=== PATIENT | male | born 1985 | race Caucasian/White ===

== ENCOUNTER 2021-05-31 17:23 | Emergency (ER) | payer OTHER, MEDICAID ==
[~2021-05-31] VITALS: Ht 167.6 cm; Wt 72.6 kg
[2021-05-31 17:51] VITALS: BP_SYST 116
[2021-05-31 18:18] LABS: BILIRUBIN,URINE NEGATIVE (NEGATIVE); BLOOD, URINE NEGATIVE (NEGATIVE); COLOR,URINE YELLOW (YELLOW); GLUCOSE,URINE NEGATIVE (NEGATIVE); KETONES,URINE TRACE (NEGATIVE); LEUKOCYTE ESTERASE ,URINE 1+ (NEGATIVE); NITRITE, URINE POSITIVE (NEGATIVE); PROTEIN URINE NEGATIVE (NEGATIVE); UROBILINOGEN,URINE 0.2 (0.2-1.0)
[2021-05-31 18:28] LABS: BASOPHILS # (AUTO) 0.1 K/uL (0.0-0.2); BASOPHILS % (AUTO) 0.6 % (0.0-2.0); EOSINOPHILS # (AUTO) 0.1 K/uL (0.0-0.4); EOSINOPHILS % (AUTO) 1.2 % (0.0-4.0); HEMOGLOBIN 12.1 g/dL (14.0-18.0); LYMPHOCYTES # (AUTO) 3.1 K/uL (1.0-5.5); LYMPHOCYTES % (AUTO) 31.6 % (20.5-51.5); MEAN CORPUSCULAR HEMOGLOBIN 26 pg (27-31); MEAN CORPUSCULAR HGB CONC 33 % (32-36); MEAN CORPUSCULAR VOLUME 80 fL (79.0-98.0); MONOCYTES # (AUTO) 0.7 K/uL (0.0-1.0); MONOCYTES % (AUTO) 7.3 % (1.7-9.3); NEUTROPHILS # (AUTO) 5.8 K/uL (1.8-7.7); NEUTROPHILS % (AUTO) 59.3 % (40.0-70.0); PLATELET COUNT (AUTO) 259 K/uL (130-430); RED BLOOD CELL COUNT(AUTO) 4.62 MIL/uL (4.2-6.2); RED CELL DISTRIBUTION WIDTH 16.6 % (9.0-15.0); WHITE BLOOD COUNT (AUTO) 9.7 K/uL (4.8-10.8)
--- NOTE | 2021-05-31 18:30 | NUR ---
Kong hughes in [facility] - 05/31/21 at [email or web address] Ward evaluating patient at bedside
--- NOTE | 2021-05-31 18:30 | NUR ---
Dr Ward evaluating patient at bedside
[2021-05-31 18:31] LABS: ANION GAP 7 (5-15); CALCIUM 9.3 mg/dL (8.4-11.0); CHLORIDE 102 mmol/L (98-107); CREATININE 0.86 mg/dL (0.55-1.30); GLUCOSE 119 mg/dL (70-99); SODIUM SERUM 138 mmol/L (136-145); UREA NITROGEN, BLOOD 7 mg/dL (8-21)
[2021-05-31 18:41] LABS: CHOLESTEROL 268 mg/dL (<200); GFR AFRICAN AMERICAN 128 mL/min (>90); HDL CHOLESTEROL 45 mg/dL (>45); LDL CHOLESTEROL 166 mg/dL (<100); TRIGLYCERIDES 254 mg/dL (30-150)
[2021-05-31 18:45] LABS: ALANINE AMINOTRANSFERASE 52 U/L (12-78); ALBUMIN 3.3 g/dL (3.4-4.8); ASPARTATE AMINOTRANSFERASE 29 U/L (10-37); TOTAL BILIRUBIN 0.3 mg/dL (0.0-1.0)
--- NOTE | 2021-05-31 18:45 | NUR ---
Patient to ER bed H1 to gown for evaluation. Side rails up.
[2021-05-31 18:46] LABS: ACETAMINOPHEN < 1 ug/mL (1-30); ALCOHOL, BLOOD < 3 mg/dL (<10)
--- NOTE | 2021-05-31 18:50 | NUR ---
Dr Lomax evaluating patient at bedside
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
[2021-05-31 18:55] LABS: CLARITY/URINE SLIGHTLY HAZY (CLEAR)
[2021-05-31 18:58] LABS: BARBITURATE, URINE NEGATIVE (NEG <=200); BENZODIAZEPINE, URINE POSITIVE (NEG <=150); CANNABINOID, URINE NEGATIVE (NEG <=50); COCAINE, URINE NEGATIVE (NEG <=150); METHAMPHETAMINES SCREEN,URINE NEGATIVE (NEG <=500); OPIATE, URINE NEGATIVE (NEG <=100); PHENCYCLIDINE SCREEN,URINE NEGATIVE (NEG <=25); UR TRICYCLIC ANTIDEPRESSANTS POSITIVE (NEG <=300); URINE AMPHETAMINE NEGATIVE (NEG <=500); URINE METHADONE NEGATIVE (NEG <=200); URINE OXYCODONE SCREEN NEGATIVE (NEG <=100); URINE PROPOXYPHENE SCREEN NEGATIVE (NEG <=300)
[2021-05-31 19:15] LABS: BACTERIA,URINE MANY /HPF (None Seen); MUCUS,URINE None Seen /LPF (None Seen); RBC,URINE 0-3 /HPF (0-3); WBC,URINE 20-50 /HPF (0-3)
--- NOTE | 2021-05-31 19:41 | NUR ---
Spoke with staff Cammy Hoskins (LILLIANA Turpin) and report given, patient will transfer to room number 55 A after medical clearance.
--- NOTE | 2021-05-31 19:41 | NUR ---
Kong hughes in [facility] - 05/31/21 at 2102 by [email or web address] Spoke with staff Cammy Hoskins , patient will transfer to room number 65 A after medical clearance.
[2021-05-31] MEDS ORDERED: SULFAMETHOXAZOLE/TRIMETHOPR DS 1 TABLET PO ONE (19:45)
--- NOTE | 2021-05-31 20:37 | NUR ---
Given Blankets and pillow as request.
--- NOTE | 2021-05-31 20:54 | NUR ---
Patient is sleeping, no acute distress.
--- NOTE | 2021-05-31 22:17 | NUR ---
Patient resting quietly. No acute distress noted. Vital signs within normal range.
[2021-05-31 23:10] VITALS: BP_SYST 116
--- NOTE | 2021-05-31 23:10 | NUR ---
Patient will transfer to [facility] via [facility] with [facility].
== END 2021-05-31 23:10 ==
LOC: SED 17:23
DX: F29 Unspecified psychosis not due to a substance or known physiological condition (principal); R45.6 Violent behavior; N39.0 Urinary tract infection, site not specified; Z20.822 Contact with and (suspected) exposure to COVID-19
CPT/HCPCS: 36415; 80053; 80061; 80307; 81000; 83036; 85025; 87081; 87086; 87426; 99285; G0480; G0481; G0482